=== PATIENT | male | born 1955 | race Caucasian/White ===

== ENCOUNTER 2021-05-29 11:46 | Emergency (ER) | payer OTHER, SELFPAY ==
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
[2021-05-29 12:34] VITALS: BP 139/94; PULSE 65; RESP 16; TEMP 37; O2SAT 98
[2021-05-29 14:16] VITALS: BP 136/84; PULSE 58; RESP 16; TEMP 35.6; O2SAT 95
--- NOTE | 2021-05-29 15:56 | ECG_ITS ---
Measurements Intervals [place] Rate: 61 P: 52 MO: 135 QRS: 9 QRSD: 96 T: 45 QT: 423 QTc: 426 Interpretive Statements SINUS RHYTHM INCOMPLETE RIGHT BUNDLE BRANCH BLOCK BASELINE ARTIFACT- V3 BORDERLINE ECG Electronically Signed On 05-29-2021 16:04:17 ASSET MANAGEMENT ANALYST by Dirk Anna D.O.
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
[2021-05-29 16:55] VITALS: BP 119/85; PULSE 69; RESP 14; O2SAT 99
[2021-05-29 16:58] VITALS: O2SAT 96
[2021-05-29 16:59] LABS: Alanine Aminotransferase 46 U/L (4-50); Alkaline Phosphatase 67 U/L (38-126); Anion Gap 9 mmol/L (8-16); Aspartate Amino Transferase 42 U/L (17-59); Basophils Absolute Auto 0.1 K/mm3 (0.0-0.1); Basophils Percent Auto 0.8 % (0.2-1.2); Blood Urea Nitrogen 17 mg/dL (9-20); Calcium 9.5 mg/dL (8.4-10.2); Carbon Dioxide 26 mmol/L (22-30); Chloride 104 mmol/L (98-107); Eosinophils Percent Auto 0.6 % (0-4.4); Estimated CRCL calculation 93 ml/min; Estimated Glomerular Filt Rate > 60; Glucose 90 mg/dL (65-110); Hematocrit 48.5 % (42.0-52.0); Hemoglobin 16.8 g/dL (14.0-18.0); INR 0.9; Immature Granulocyte Absolute 0.03 K/mm3 (0.00-0.031); Immature Granulocyte Percent A 0.5 % (0-0.5); Immature Platelet Fraction Pct 3.8 % (0.9-11.2); Lymphocytes Absolute Auto 1.86 K/mm3 (0.9-3.2); Lymphocytes Percent Auto 28.8 % (18.3-44.2); Mean Corpuscular HGB Conc 34.6 g/dl (32-36); Mean Corpuscular Hemoglobin 33.3 pg (26-34); Mean Corpuscular Volume 96.2 fl (80-100); Monocytes Absolute Auto 0.7 K/mm3 (0.1-0.6); Monocytes Percent Auto 10.1 % (2.6-8.5); Neutrophils Absolute Auto 3.8 K/mm3 (1.3-6.7); Neutrophils Percent Auto 59.2 % (45.5-73.1); Platelet Count Result 146 k/mm3 (150-375); Potassium 3.9 mmol/L (3.4-5.0); Prothrombin Time 12.4 Seconds (11.1-14.7); Red Blood Count 5.04 M/mm3 (4.6-6.20); Red Cell Distribution Width 12.9 % (11.5-14.5); Sodium 139 mmol/L (137-145); White Blood Count 6.5 K/mm3 (4.5-10.0)
[2021-05-29 17:00] LABS: Partial Thromboplastin Time 25.5 SECONDS (22.3-36.8)
[2021-05-29 17:13] LABS: Add Urine Microscopic? YES; Appearance Urine Clear (Clear); Bilirubin Urine Negative (Negative); Blood Urine Negative (Negative); Color Urine Yellow (Yellow); Glucose Urine UA Negative (Negative); Ketones Urine Trace mg/dL (Negative); Leukocyte Esterase Ur Negative LEU/UL (Negative); Mucus Urine Rare /lpf; Nitrate Urine Negative (Negative); Protein Urine Negative (Negative); RBC Urine 0-2 /hpf (0-2); Specific Grav Ur 1.021 (1.001-1.035); Urobilinogen Urine Negative mg/dL (<2.0); WBC Urine 0-3 /hpf
[2021-05-29] MEDS: MORPHINE SULFATE (*CRX) 4 MG/ML INJ IV PUSH (17:42)
[2021-05-29 18:14] VITALS: BP 125/86; PULSE 67; RESP 17; O2SAT 95
[2021-05-29 19:23] VITALS: BP 139/97; PULSE 82; RESP 18; O2SAT 95
== END 2021-05-29 19:25 | disposition home or self-care (01) ==
PROVIDERS: Physician Assistant; Emergency Provider General Practice
DX: S20.219A Contusion of unspecified front wall of thorax, initial encounter (principal); V43.52XA Car driver injured in collision with other type car in traffic accident, initial encounter
CPT/HCPCS: 36415; 71260; 74177; 80053; 81001; 85025; 85055; 85610; 85730; 93005; 96374; 99284; J2270; Q9967

== ENCOUNTER 2022-04-01 11:10 | Emergency (ER) | payer MEDICARE, SELFPAY ==
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
[2022-04-01 11:12] VITALS: BP 125/89; PULSE 75; RESP 18; TEMP 36.8; O2SAT 98
[2022-04-01 11:37] VITALS: BP 139/93; PULSE 68; RESP 16; O2SAT 96
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
[2022-04-01] MEDS: MORPHINE SULFATE (*CRX) 4 MG/ML INJ IV PUSH (11:43)
[2022-04-01] MEDS: ONDANSETRON INJ 4 MG/2 ML VIAL IV PUSH (11:43)
[2022-04-01 12:02] VITALS: BP 140/98; PULSE 68; RESP 15; O2SAT 98
[2022-04-01] MEDS: HYDROmorphone HCL INJ (*CRX) 1 MG/ML SYR 0.5 MG IV PUSH (12:32)
[2022-04-01 12:34] VITALS: BP 139/76; PULSE 70; RESP 18; O2SAT 100
== END 2022-04-01 12:36 | disposition short-term general hospital (02) ==
PROVIDERS: Emergency Provider Emergency Medicine
DX: M54.9 Dorsalgia, unspecified (principal)
CPT/HCPCS: 71045; 72170; 96374; 96375; 99284; 99285; J1170; J2270; J2405; L0140

== ENCOUNTER 2025-02-03 12:59 | Emergency (ER) | payer MEDICARE, SELFPAY ==
--- NOTE | ~2025-02-03 | XR_ITS ---
Clinical history:Laceration. Swelling. Signs of infection EXAM:X-ray finger third right minimum 2 views TECHNIQUE:3 images of the right third digit were obtained. Comparisons:None available FINDINGS: There is a 2 mm linear density along the volar aspect of the proximal third of the middle phalanx of the third digit. Differential includes tiny avulsion fracture of indeterminate age, accessory ossicle or foreign body. No dislocation. Soft tissue swelling about the right third digit. Bone mineralization is within normal limits. No other possible fracture. No sclerotic or destructive bone lesions. IMPRESSION: 1. There is a 2 mm linear density along the volar aspect of the proximal third of the middle phalanx of the third digit. Differential includes tiny avulsion fracture of indeterminate age, accessory ossicle or foreign body. 2. Soft tissue swelling about the right third digit. If symptoms persist or worsen, consider a short-term follow-up study or additional imaging for further assessment. Reviewed, dictated and finalized at location Q. IMPRESSION: 1. There is a 2 mm linear density along the volar aspect of the proximal third of the middle phalanx of the third digit. Differential includes tiny avulsion f racture of indeterminate age, accessory ossicle or foreign body. 2. Soft tissue swelling about the right third digit. If symptoms persist or worsen, consider a short-term follow-up study or additio nal imaging for further assessment.
--- NOTE | ~2025-02-03 | XR_ITS ---
EXAMINATION: XR hand RT min 3V DATE: 02/03/2025 13:47 INDICATION: Injury to right middle finger. Swelling. TECHNIQUE: 3 images of the right hand were obtained. COMPARISON: None. FINDINGS: There is a 2 mm linear density along the volar aspect of the proximal third of the middle phalanx of the third digit. Differential includes tiny avulsion fracture of indeterminate age, accessory ossicle or foreign body. No dislocation. Soft tissue swelling about the right third digit. Bone mineralization is within normal limits. No other possible fracture. No sclerotic or destructive bone lesions. Mild joint space narrowing in the first carpometacarpal joint and first metacarpophalangeal joint. Mild joint space narrowing in the PIP joints of the second, third and fourth digits. IMPRESSION: 1. There is a 2 mm linear density along the volar aspect of the proximal third of the middle phalanx of the third digit. Differential includes tiny avulsion fracture of indeterminate age, accessory ossicle or foreign body. 2. Soft tissue swelling about the right third digit. If symptoms persist or worsen, consider a short-term follow-up study or additional imaging for further assessment. Reviewed, dictated and finalized at location Q. IMPRESSION: 1. There is a 2 mm linear density along the volar aspect of the proximal third of the middle phalanx of the third digit. Differential includes tiny avulsion f racture of indeterminate age, accessory ossicle or foreign body. 2. Soft tissue swelling about the right third digit. If symptoms persist or worsen, consider a short-term follow-up study or additio nal imaging for further assessment.
[2025-02-03 13:10] VITALS: BP 103/78; PULSE 85; RESP 16; O2SAT 100
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
[2025-02-03] MEDS: KETOROLAC 30 MG/ML VIAL (*BKC) IV PUSH (14:04)
[2025-02-03 14:16] LABS: Hematocrit 43.6 % (42.0-52.0); Hemoglobin 14.9 g/dL (14.0-18.0); Immature Granulocyte Percent A 1.9 % (0-0.5); Lymphocytes Absolute Auto 1.11 K/mm3 (0.9-3.2); Mean Corpuscular HGB Conc 34.2 g/dl (32-36); Mean Corpuscular Hemoglobin 34.5 pg (26-34); Mean Corpuscular Volume 100.9 fl (80-100); Nucleated Red Blood Cells Absolute Auto 0.000 K/mm3 (0.0-0.012); Nucleated Red Blood Cells Perc 0.0 % (0.0-0.2); Platelet Count Result 149 k/mm3 (150-375); Red Blood Count 4.32 M/mm3 (4.6-6.20); White Blood Count 9.8 K/mm3 (4.5-10.0)
[2025-02-03 14:29] LABS: Alanine Aminotransferase 33 U/L (6-50); Albumin Level 4.4 g/dL (3.5-5.1); Alkaline Phosphatase 84 U/L (38-126); Anion Gap 10 mmol/L (4-12); Aspartate Amino Transferase 33 U/L (17-59); Bilirubin,Total 1.7 mg/dL (0.2-1.3); Blood Urea Nitrogen 17 mg/dL (9-20); CRP 8.8 mg/dL (<1.0); Calcium 9.0 mg/dL (8.4-10.2); Carbon Dioxide 23 mmol/L (22-30); Chloride 103 mmol/L (98-107); Estimated CRCL calculation 68 ml/min; Estimated Glomerular Filt Rate > 60; Glucose 114 mg/dL (65-110); Potassium 4.3 mmol/L (3.4-5.0); Sodium 136 mmol/L (137-145); Total Protein 8.7 g/dL (6.3-8.2)
--- OUTSIDE RECORDS SUMMARY | 2025-02-03 14:56 | XMS_ITS | Clinical Summary ---
Author Organization [facility] Address [address] [place] [address] Phone Care Team Providers Care Business Change Manager Name Role Phone Provider, None Primary Care Provider Unavailabl e Allergies Active Allergy Reactions Criticality Noted Date Comments Codeine Anaphylaxis 12/18/2016 Cyclobenzaprine Other (see Comments) 12/18/2016 Leg cramps Medications HYDROcodone-tammie taminophen (NORCO) 5-325 MG Tablet Take 1 Tab by mouth every 6 hours as needed for Pain. 90 Tab 8 Active ibuprofen (MOTRIN) 600 MG TabletIndicatio ns:Chronic midline low back pain with bilateral sciatica Take 1 Tab by mouth every 8 hours as needed. 90 Tab 1 8 Active VENTOLIN HFA 108 (90 Base) MCG/ACT Aerosol Solution take 2 Puffs by inhalation every 6 hours as needed. 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 atica 07/09/2017 H/O lumbosacral spine surgery 07/09/2017 Opioid dependence with opioid-induced disorder 0 07/09/2017 Tobacco use disorder 07/09/2017 Marijuana user 07/09/2017 Family History Medical History Relation Name Comments Diabetes Brother Diabetes Father Breast Cancer Mother Colon Cancer Mother Diabetes Mother Diabetes Sister Relation Name Status Comments Brother 2 brothers Father Mother Alive Sister 7 sisters with diabetes Social History Tobacco Use Types Packs/Day Years Used Date Smoking Tobacco: Every Day Cigarettes 1 30 Smokeless Tobacco: Never Tobacco Cessation:Ready to Q uit: No; Counseling Given: Yes Alcohol Use Standard Drinks/Week Comments Yes 0 (1 standard drink = 0.6 oz pur e alcohol) 2 cans of beer a week Sex and Gender Information Value Date Recorded Sex Assigned at Not on file Legal Sex Male 8:56 PM CDT Gender Identity Not on file Sexual Orientation Not on file Last Filed Vital Signs Vital Sign Reading Time Taken Comments Blood Pressure 112/82 07/09/2017 10:12 AM ENGINEERING INSPECTOR Pulse 72 07/09/2017 10:12 AM ENGINEERING INSPECTOR Temperature 35.7 C (96.2 F) 07/09/2017 10:12 AM ENGINEERING INSPECTOR Respiratory Rate 20 07/09/2017 10:12 AM ENGINEERING INSPECTOR Oxygen Saturation 97% 07/09/2017 10:12 AM ENGINEERING INSPECTOR Inhaled Oxygen Concentration - - Weight 81 kg (178 lb 9.6 oz) 07/09/2017 10:12 AM ENGINEERING INSPECTOR Height 188 cm (6' 2) 07/09/2017 10:12 AM ENGINEERING INSPECTOR Body Mass Index 22.93 07/09/2017 10:12 AM ENGINEERING INSPECTOR Plan of Treatment Health Maintenance Due Date Last Done Comments Hepatitis C Virus (HCV) Screening 1955 TdaP Immunization 1955 Cologuard 12/09/2000 Immunochemical Fecal Occult Blood 12/09/2000 Pneumococcal Immunization (5 0+ years) (1 of 1 - PCV) 12/09/2005 Zoster Immunization (1 of 2) 12/09/2005 Colonoscopy 06/12/2018 06/12/2017 Colorectal Cancer Screening 06/12/2018 Influenza Immunization (#1) 2025 SARS-COV-2 Immunization (1 - 2023-25 season) 2025 Respiratory Syncytial Virus (RSV) Immunization (Adult) (1 - 1-dose 75+ series) 12/09/2030 Hepatitis B Immunization Aged Out No longer eligible based on patient's age to complete this topic Human Papillomavirus (HPV) Immunization Aged Out No longer eligible b ased on patient's age to complete this topic Meningococcal Immunization (ACWY) Aged Out No longer eligible based on patient's age to complete this topic Rotavirus Immunization Aged Out No lo nger eligible based on patient's age to complete this topic Insurance MEDICAID [place] Care Teams Business Change Manager Relationship Specialty Start Date End Date Provider, None [place] PCP - General 11/07/20
--- OUTSIDE RECORDS SUMMARY | 2025-02-03 14:56 | XMS_ITS | Clinical Summary ---
Author Organization [facility] Address [address] [place] [id number] Care Team Providers Care Damage Inside Adjuster Name Role Phone Unavailable Primary Care Provider Unavailabl e Social History Tobacco Use Types Packs/Day Years Used Date Smoking Tobacco: Never Assessed Sex and Gender Information Value Date Recorded Sex Assigned at Not on file Legal Sex Male 5:42 PM CDT Gender Identity Not on file Sexual Orientation Not on file Plan of Treatment Health Maintenance Due Date Last Done Comments Colorectal Cancer Screening Colonoscopy (10 Years) 1955 Hepatitis C 12/09/1973 DTaP, Tdap and Td Vaccines ( 1 - Tdap) 12/09/1974 Pneumococcal Vaccine: 50+ Ye ars (1 of 1 - PCV) 12/09/2005 Zoster Vaccines (1 of 2) 12/09/2005 COVID-19 Vaccine (1 - 2023-2 5 season) 2025 RSV Immunization or 60+ Years (1 - 1-dose 75+ series) 12/09/2030 Meningococcal B Vaccine Aged Out No l onger eligible based on patient's age to complete this topic Meningococcal Vaccine Aged Out No elizabeth wilmer eligible based on patient's age to complete this topic RSV Immunizations Under 20 Months Aged Out No longer eligible based on patient's age to complete this topic
[2025-02-03] MEDS: VANCOMYCIN 1,500 MG/NS 500 ML 1,500 MG/500 ML BAG 250 MG IVPB (15:05)
[2025-02-03 15:17] VITALS: BP 105/73; PULSE 67; RESP 16; TEMP 36.7; O2SAT 97
[2025-02-03] MEDS: ACETAMINOPHEN 500 MG TABLET 1000 MG PO (16:07)
[2025-02-03 16:09] VITALS: BP 114/80; PULSE 67; RESP 18; O2SAT 99
[2025-02-03 17:11] VITALS: BP 118/67; PULSE 67; RESP 15; O2SAT 96
== END 2025-02-03 17:24 | disposition short-term general hospital (02) ==
PROVIDERS: Emergency Provider Emergency Medicine
DX: T14.8XXA Other injury of unspecified body region, initial encounter (principal); L08.9 Local infection of the skin and subcutaneous tissue, unspecified; W45.8XXA Other foreign body or object entering through skin, initial encounter; Z85.118 Personal history of other malignant neoplasm of bronchus and lung; Z90.2 Acquired absence of lung [part of]; Z92.21 Personal history of antineoplastic chemotherapy
CPT/HCPCS: 36415; 73130; 73140; 80053; 83605; 85025; 86140; 87040; 96365; 96366; 96375; 99285; A9270; J1885; J3373